=== PATIENT | male | born 2005 | race Caucasian/White ===

== ENCOUNTER 2025-02-15 01:45 | Emergency (ER) | payer OTHER, MEDICAID ==
[~2025-02-15] VITALS: Ht 177.8 cm; Wt 94.2 kg
[2025-02-15 01:54] VITALS: O2SAT 99
[2025-02-15] MEDS: LIDOCAINE 5% PATCH TOP SCH (03:17)
[2025-02-15] MEDS: KETOROLAC 15MG/ML VIAL IM ONE (03:17)
[2025-02-15] MEDS ORDERED: LIDO-53 TP (03:43)
[2025-02-15] MEDS ORDERED: NAPR-1176 MT (03:43)
[2025-02-15 03:46] VITALS: BP 125/73; PULSE 69; RESP 15; TEMP 36.9; O2SAT 100
== END 2025-02-15 03:57 | disposition home or self-care (01) ==
LOC: ER 01:45
DX: M54.89 Other dorsalgia (principal); Z79.1 Long term (current) use of non-steroidal anti-inflammatories (NSAID); V49.9XXA Car occupant (driver) (passenger) injured in unspecified traffic accident, initial encounter; Y93.89 Activity, other specified; Y92.410 Unspecified street and highway as the place of occurrence of the external cause; Y99.8 Other external cause status
CPT/HCPCS: 96372; 99283; J1885; Z7610